=== PATIENT | male | born 1965 | race African-American/Black ===

== ENCOUNTER 2023-10-19 15:38 | Emergency (ER) | payer OTHER, SELFPAY ==
[2023-10-19 15:44] VITALS: BP 144/82; PULSE 98; RESP 16; TEMP 36.6; O2SAT 100; BMI 27.1
--- NOTE | 2023-10-19 16:28 | CRLHL7_ITS ---
For Patients: As a result of the Century Cures Act, medical imaging exams and procedure reports are released immediately into your electronic medical record. You may view this report before your referring provider. If you have questions, please contact your health care provider. HISTORY: Vertigo. TECHNIQUE: Noncontrast head CT. COMPARISON: No prior. FINDINGS: There is dilatation of the lateral and 3rd ventricles. 4th ventricle is nondilated. No transependymal CSF spread is apparent. There is no acute intracranial hemorrhage or acute ischemic infarct. No midline shift. No acute loss of cesar-white differentiation. The mastoid air cells are clear. Mucosal thickening is noted within the left maxillary sinus. Other paranasal sinuses are clear. No acute skull fracture. IMPRESSION: 1. Hydrocephalus with dilatation of the lateral and 3rd ventricles. No transependymal CSF spread. If there are outside CTs available for comparison, the current study could be compared with those to determine the chronicity of this ventricular dilatation. 2. No acute ischemic infarct or acute intracranial hemorrhage. Dictated by Sukhjinder Zuniga MD @ 10/19/2023 5:06:51 PM Please note that all CT scans at this facility use dose modulation, iterative reconstruction, and/or weight-based dosing when appropriate to reduce radiation dose to as low as reasonably achievable. Dictated by: Sukhjinder Zuniga MD @ 10/19/2023 17:06:56 (Electronically Signed)
--- NOTE | 2023-10-19 16:45 | CRLHL7_ITS ---
For Patients: As a result of the Century Cures Act, medical imaging exams and procedure reports are released immediately into your electronic medical record. You may view this report before your referring provider. If you have questions, please contact your health care provider. Indication: Acute onset vertigo Technique: Multiplanar, multisequence MRI of the brain obtained without contrast. Comparison: CT head from earlier same day Findings: Supratentorial ventriculomegaly, with small caliber 4th ventricle. There is suggestion of caudal tapering of the cerebral aqueduct. The septum pellucidum is largely absent. Minor supratentorial white matter FLAIR hyperintensity, suggestive of chronic microangiopathy. However, no significant periventricular FLAIR hyperintensity to suggest transependymal CSF flow. No acute/subacute ischemic, intracranial hemorrhage, or abnormal extra-axial fluid collection. No midline shift, herniation, or suspicious susceptibility. Corpus callosum is fully formed. Major intracranial flow voids are visualized. Left maxillary sinus mucous retention cysts. No paranasal sinus air-fluid level or mastoid effusion. Unremarkable orbits. Impression: 1. Supratentorial ventriculomegaly, with small caliber 4th ventricle. Appearance of caudal tapered narrowing of the cerebral aqueduct raises suspicion for cerebral aqueductal stenosis, presumably long-standing, given absent evidence of significant transependymal CSF flow. 2. No acute intracranial abnormality. Minor chronic microangiopathy white-matter changes. Dictated by Deanna Wallace MD @ 10/19/2023 5:59:29 PM (Electronically Signed)
--- NOTE | 2023-10-19 16:49 | ED.NURSE ---
POC blood sugar is 166.
[2023-10-19 17:27] LABS: PCR FLU A Negative PCR FLU A (Negative); PCR FLU B Negative PCR FLU B (Negative); PCR RSV Negative PCR RSV (Negative)
[2023-10-19 17:30] LABS: SARS PCR* Negative SARS-CoV-2 (Negative)
[2023-10-19 18:21] VITALS: BP 147/74; PULSE 74; RESP 18; O2SAT 98
--- NOTE | 2023-10-19 18:53 | ED_ITS ---
HPI - Dizziness General Date Seen: 10/19/23 Chief Complaint: Dizziness/Vertigo Stated Complaint: dizzy, Time Seen by Provider: 10/19/23 15:47 Source: patient Mode of arrival: ambulatory Limitations: no limitations History of Present Illness HPI Narrative: Patient is the 58-year-old gentleman who presents here with the history of dizziness,/vertigo. He has had this now for 48-72 hours, came on slowly over the course of 3 days ago, he says he is able to tolerate a does not really have any symptoms at all when he sits still or lays still but when he moves positions sits up stands up the symptoms come on, it is improved today as he went to the pharmacy and the pharmacist told to try some Dramamine. He also has noted some slight ringing in his ears associated with this. But he has noted no cold-like symptoms plugging of his ears fevers chills. He had vehemently denies to me that he has has a headache. Denies any neck pain associated with this no history of falls or injury has had this before, but not nearly as bad. He is however a diabetic. No previous neuro imaging done, works in a [employer] and [email or web address] but lives in [place]. Gets his care through the [facility]. Denies any visual changes diplopia loss of vision. He has no numbness tingling or weakness, he says he has a little trouble walking, but I walk in the same time of him for my shift. I saw him on the helicopter pad and explained to him that he should walk to the emergency room to be seen before knowing that he would be my patient. He was able to walk normally, with no evidence of any gait abnormalities denies alcohol trauma. Severity: moderate Description: sense of movement and off-balance Stroke scale total: 0 Related Data Home Medications Medication Instructions Recorded Confirmed Lantus U-100 Insulin 10/19/23 amlodipine 10/19/23 atorvastatin 10/19/23 lisinopril 10/19/23 metformin 10/19/23 Allergies Allergy/AdvReac Type Severity Reaction Status Date / Time No Known Drug Allergies Allergy Verified 10/19/23 15:49 Review of Systems Status of ROS: Reports: 10 or more systems reviewed and unremarkable except as noted in History and below PFSH PFSH Social History Smoking Status: Never smoker Non-prescribed substance use: denies use Exam Narrative: Exam Narrative: On examination he is in no apparent distress he is very nice and pleasant he is speaking to me normally, cranial nerves 3-12 are normal, extraocular muscles are normal, with no diplopia, pupils equal round reactive to light his fundi appear normal to this examiner. He does have 2-3 beats of nystagmus horizontally. He is able to smile, for me normally. TMs are normal bilaterally, external canals are normal there is no lymphadenopathy anterior posterior chains no meningismus, thyroid normal midline palpable not enlarged, chest is clear bilaterally with no wheezing crackles noted heart sounds are normal his abdomen is soft and scaphoid there is no guarding he moves all extremities independently well, right-hand dominant, and finger-nose testing is normal, and fine rapid movements of his hands bilaterally are normal, tandem walking he did step out a couple times while he was tandem walking, I suspect when he is normally can do this. Const: Vital Signs, click to edit/add: Vital Signs - 24 hr 10/19/23 15:44 10/19/23 18:21 Temperature 97.9 F Pulse Rate [Pulse Oximeter] 98 74 Respiratory Rate 16 18 Blood Pressure [Ri ght Upper Arm] 144/82 H 147/74 H Pulse Oximetry 100 98 Oxygen Delivery Me thod Room Air Documenting provider has reviewed patient's vital signs: yes Course Course ED Course: Had a long talk with the patient we could try some prednisone for neuronitis here. Although will increase his sugars markedly, after discussion with him, he would like to just use the meclizine which she says is helping already. I do not think this is unreasonable, follow-up in 2-3 days with this primary care clinic, and then think about a Neurology nerve referral for to tackle the large ventricle issue. He was very comfortable this plan, copies of his results are given to him. Vital Signs Vital signs: Initial Vital Signs Temperature 97.9 F 10/19/23 15:44 Temperature Source Temporal Artery Scan 10/19/23 15:44 Pulse Rate 98 10/19/23 15:44 Respiratory Rate 16 10/19/23 15:44 Blood Pressure 144/82 H 10/19/23 15:44 Blood Pressure Mean 102 10/19/23 15:44 Blood Pressure Position Sitting 12/10/23 15:44 Pulse Oximetry 100 10/19/23 15:44 Oxygen Delivery Method Room Air 10/19/23 15:44 Vital Signs Temperature 97.9 F 10/19/23 15:44 Pulse Rate 98 10/19/23 15:44 Respiratory Rate 16 10/19/23 15:44 Blood Pressure 144/82 H 10/19/23 15:44 Pulse Oximetry 100 10/19/23 15:44 Oxygen Delivery Method Room Air 10/19/23 15:44 Temperature 97.9 F 10/19/23 15:44 Pulse Rate 74 10/19/23 18:21 Respiratory Rate 18 10/19/23 18:21 Blood Pressure 147/74 H 10/19/23 18:21 Pulse Oximetry 98 10/19/23 18:21 Oxygen Delivery Method Room Air 10/19/23 15:44 MDM - Dizziness MDM Narrative Medical decision making narrative: Life-threatening differential diagnosis considered include, CVA, other differential diagnosis include BPPV, labyrinthitis, Meniere's disease, vestibular neuronitis, migraine, multiple sclerosis, otitis media, viral syndrome as well as other etiologies Given that he is a diabetic, I did do a CT scan of his head, this showed a large ventricles, and prompted me to do an MRI of his head, I a.m. worried about normal pressure hydrocephalus, although it seems to be more of a chronic finding and will need neurology follow-up, Medical Records Attestation: I reviewed the patient's medical records. Lab Data Attestation: I reviewed the patient's lab results. Labs: Lab Results 10/19/23 Range/Units 16:36 SARS-CoV-2 (PCR) Negative SARS-CoV-2 (Negative) Influenza Type A (PCR) Negative PCR FLU A (Negative) Influenza Type B (PCR) Negative PCR FLU B (Negative) RSV (PCR) Negative PCR RSV (Negative) Discharge Plan Discharge Clinical Impression: Benign paroxysmal positional vertigo, (Idiopathic) normal pressure hydrocephalus Patient Disposition: Home, Self-Care Condition: Stable Instructions: Benign Paroxysmal Positional Vertigo (ED), Dizziness (ED) Additional Instructions: I would stay with the Dramamine, 25-50 mg by mouth three times a day. This usually improves in the next couple of days. Slow change in positions, and see how it goes. Alcohol causes worsening. Avoid. Suggest follow up with primary care in 3-5 days, if not improved consider Predisone but know it will worsen the glucose levels. Also highly recommend neurology consultation, for enlarged ventricles. Please give him copies of the MRI, and CT scan Activity Level: Light activity Prescriptions: No Action metformin lisinopril amlodipine atorvastatin Lantus U-100 Insulin Follow Up/Referrals: Tiffanie Jiang MD [Primary Care Provider] - Stand Alone Forms: [employer] Info Instructions
[2023-11-27 10:24] LABS: Glucose, Point-of-Care* 166 mg/dl (60-115)
== END 2023-10-19 18:22 | disposition home or self-care (01) ==
PROVIDERS: Emergency Provider Family Medicine; PCP Family Medicine
DX: H81.10 Benign paroxysmal vertigo, unspecified ear (principal); G91.2 (Idiopathic) normal pressure hydrocephalus
CPT/HCPCS: 70450; 70551; 82947; 87631; 99284